=== PATIENT | female | born 1950 ===

== ENCOUNTER 2023-02-28 05:20 | Day surgery (SDC) | payer OTHER ==
[~2023-02-28] VITALS: Ht 152.4 cm; Wt 56.7 kg
[~2023-02-28 05:20] MED LIST: ATORVASTATIN CA20 MG PO; BENADRYL25 MG PO; PREDNISONE PO; SYNTHROID50 MCG PO; ZIAC 2.5-6.251 EACH PO
== END 2023-02-28 19:40 | disposition home or self-care (01) ==
LOC: CIR.AMB 05:20
PROVIDERS: ATTEND Urology
DX: N20.0 Calculus of kidney (principal); Z20.822 Contact with and (suspected) exposure to COVID-19; I10 Essential (primary) hypertension; Z88.8 Allergy status to other drugs, medicaments and biological substances